=== PATIENT | female | born 1945 | race Caucasian/White ===

== ENCOUNTER 2021-08-02 12:57 | Inpatient (IN) ==
[2021-08-03] MEDS ORDERED: Ipratropium/Albuterol Neb 3 ML IH PRN (16:25)
[2021-08-03] MEDS: Budesonide/Formoterol 160/4.5 1 PUFF INH IH SCH (20:45)
[2021-08-03] MEDS ORDERED: Acetaminophen 325 MG TABLET PO PRN (21:25)
[2021-08-03] MEDS: Acetaminophen 325 MG TABLET PO PRN (22:08)
[2021-08-03] MEDS: Polymyxn-B/Trimeth Opth Drops 10 ML BOTTLE BOTH EYES SCH (22:10)
[2021-08-03] MEDS: Gabapentin 100 MG CAPSULE PO SCH (22:10)
[2021-08-04] MEDS: *HR* Enoxaparin 40 MG/0.4 ML SYRINGE SQ SCH (06:31)
[2021-08-04 06:49] LABS: Basophils % 0.2 %; Eosinophils % 0.1 %; Hematocrit 33.2 % (35.3-44.9); Hemoglobin 10.3 g/dL (11.5-15.4); Immature Granulocytes % 4.3 % (0-4); Lymphocytes # 1.3 K/mcL (0.6-4.6); Lymphocytes % 15.3 %; Mean Corpuscular Volume 103.1 fL (83.0-100.0); Mean Platelet Volume 10.9 fL (9.4-12.4); Monocytes # 0.6 K/mcL (0.0-1.3); Monocytes % 6.5 %; Neutrophils # 6.2 K/mcL (1.6-8.9); Nucleated Red Blood Cells 0.2 /100 WBC (0); Platelet Count 329 K/mcL (140-400); Red Blood Count 3.22 M/mcL (3.82-4.97); Red Cell Distribution Width 14.5 % (11.5-14.5); Segmented Neutrophils % 73.6 %; White Blood Count 8.5 K/mcL (4.3-11.1)
[2021-08-04 08:26] LABS: BUN/Creatinine Ratio 32 (6-26); Blood Urea Nitrogen 19 mg/dL (8-23); Calcium 8.2 mg/dL (8.6-10.3); Carbon Dioxide 45 mEq/L (23-29); Chloride 88 mEq/L (98-107); Glucose 82 mg/dL (70-105); Osmolality,Calculated 289 (280-300); Potassium 3.9 mEq/L (3.5-5.1); Sodium 139 mEq/L (136-145); eGFR For African Americans > 60 (> 60); eGFR For Non-African Americans > 60 (> 60)
[2021-08-04] MEDS: Furosemide 40 MG TABLET PO SCH (08:34)
[2021-08-04] MEDS: *HR* SitaGLIPtin 100 MG TABLET PO SCH (08:34)
[2021-08-04] MEDS: Gabapentin 100 MG CAPSULE PO SCH ×2 (08:34→19:44)
[2021-08-04] MEDS: Aspirin Enteric Coated 81 MG Tablet PO SCH (08:34)
[2021-08-04] MEDS: dexAMETHasone 4 MG TABLET PO SCH (08:35)
[2021-08-04] MEDS: Tiotropium 10 INH DOSE IH SCH (09:28)
[2021-08-04] MEDS: Budesonide/Formoterol 160/4.5 1 PUFF INH IH SCH ×2 (09:28→20:44)
[2021-08-04] MEDS: ZINC ACETATE 50 MG PO SCH (14:33)
[2021-08-04] MEDS: polyethylene glycoL 3350 17 GM POWD.PACK PO SCH (14:45)
[2021-08-04] MEDS: Sennosides/Docusate Sodium TABLET PO SCH ×2 (14:45→19:44)
[2021-08-04] MEDS: Polymyxn-B/Trimeth Opth Drops 10 ML BOTTLE BOTH EYES SCH ×3 (14:46→19:44)
[2021-08-04] MEDS: acetaZOLAMIDE 250 MG TABLET PO SCH ×2 (17:11→19:44)
[2021-08-04] MEDS: Acetaminophen 325 MG TABLET PO PRN (19:44)
[2021-08-05] MEDS: *HR* Enoxaparin 40 MG/0.4 ML SYRINGE SQ SCH (04:04)
[2021-08-05] MEDS: polyethylene glycoL 3350 17 GM POWD.PACK PO SCH ×2 (09:07→19:04)
[2021-08-05] MEDS: *HR* SitaGLIPtin 100 MG TABLET PO SCH (09:08)
[2021-08-05] MEDS: Furosemide 40 MG TABLET PO SCH (09:08)
[2021-08-05] MEDS: dexAMETHasone 4 MG TABLET PO SCH (09:08)
[2021-08-05] MEDS: acetaZOLAMIDE 250 MG TABLET PO SCH ×2 (09:09→19:50)
[2021-08-05] MEDS: Aspirin Enteric Coated 81 MG Tablet PO SCH (09:09)
[2021-08-05] MEDS: ZINC ACETATE 50 MG PO SCH (09:09)
[2021-08-05] MEDS: Polymyxn-B/Trimeth Opth Drops 10 ML BOTTLE BOTH EYES SCH ×3 (09:09→19:51)
[2021-08-05] MEDS: Gabapentin 100 MG CAPSULE PO SCH ×2 (09:09→19:50)
[2021-08-05] MEDS: Sennosides/Docusate Sodium TABLET PO SCH ×2 (09:09→19:50)
[2021-08-05] MEDS: Tiotropium 10 INH DOSE IH SCH (10:36)
[2021-08-05] MEDS: Budesonide/Formoterol 160/4.5 1 PUFF INH IH SCH ×2 (10:37→20:36)
[2021-08-05] MEDS: Acetaminophen 325 MG TABLET PO PRN (19:50)
[2021-08-06] MEDS: *HR* Enoxaparin 40 MG/0.4 ML SYRINGE SQ SCH (06:31)
[2021-08-06] MEDS: *HR* SitaGLIPtin 100 MG TABLET PO SCH (08:36)
[2021-08-06] MEDS: Furosemide 40 MG TABLET PO SCH (08:36)
[2021-08-06] MEDS: Aspirin Enteric Coated 81 MG Tablet PO SCH (08:37)
[2021-08-06] MEDS: Gabapentin 100 MG CAPSULE PO SCH ×2 (08:37→20:36)
[2021-08-06] MEDS: Sennosides/Docusate Sodium TABLET PO SCH ×2 (08:37→20:36)
[2021-08-06] MEDS: polyethylene glycoL 3350 17 GM POWD.PACK PO SCH (08:37)
[2021-08-06] MEDS: dexAMETHasone 4 MG TABLET PO SCH (08:37)
[2021-08-06] MEDS: acetaZOLAMIDE 250 MG TABLET PO SCH ×2 (08:37→20:36)
[2021-08-06] MEDS: ZINC ACETATE 50 MG PO SCH (08:38)
[2021-08-06] MEDS: Polymyxn-B/Trimeth Opth Drops 10 ML BOTTLE BOTH EYES SCH ×3 (08:38→20:37)
[2021-08-06] MEDS: Tiotropium 10 INH DOSE IH SCH (08:56)
[2021-08-06] MEDS: Budesonide/Formoterol 160/4.5 1 PUFF INH IH SCH ×2 (08:56→20:44)
[2021-08-06] MEDS: Acetaminophen 325 MG TABLET PO PRN (11:38)
[2021-08-07] MEDS: *HR* Enoxaparin 40 MG/0.4 ML SYRINGE SQ SCH (06:29)
[2021-08-07] MEDS: Acetaminophen 325 MG TABLET PO PRN ×2 (06:29→21:30)
[2021-08-07] MEDS: Aspirin Enteric Coated 81 MG Tablet PO SCH (08:22)
[2021-08-07] MEDS: Sennosides/Docusate Sodium TABLET PO SCH ×2 (08:22→21:29)
[2021-08-07] MEDS: *HR* SitaGLIPtin 100 MG TABLET PO SCH (08:23)
[2021-08-07] MEDS: dexAMETHasone 4 MG TABLET PO SCH (08:23)
[2021-08-07] MEDS: Gabapentin 100 MG CAPSULE PO SCH ×2 (08:24→21:30)
[2021-08-07] MEDS: Furosemide 40 MG TABLET PO SCH (08:24)
[2021-08-07] MEDS: polyethylene glycoL 3350 17 GM POWD.PACK PO SCH (08:24)
[2021-08-07] MEDS: ZINC ACETATE 50 MG PO SCH (08:25)
[2021-08-07] MEDS: Polymyxn-B/Trimeth Opth Drops 10 ML BOTTLE BOTH EYES SCH ×3 (08:25→21:30)
[2021-08-07] MEDS: Tiotropium 10 INH DOSE IH SCH (10:36)
[2021-08-07] MEDS: Budesonide/Formoterol 160/4.5 1 PUFF INH IH SCH ×2 (10:38→20:55)
[2021-08-08] MEDS: *HR* Enoxaparin 40 MG/0.4 ML SYRINGE SQ SCH (06:03)
[2021-08-08] MEDS: Acetaminophen 325 MG TABLET PO PRN (06:04)
[2021-08-08 07:34] LABS: Basophils % 0.2 %; Eosinophils % 0.2 %; Hematocrit 35.4 % (35.3-44.9); Hemoglobin 10.9 g/dL (11.5-15.4); Immature Granulocytes % 2.2 % (0-4); Lymphocytes # 1.5 K/mcL (0.6-4.6); Mean Corpuscular HGB Conc 30.8 g/dL (31.6-35.5); Mean Corpuscular Hemoglobin 31.6 pg (28.0-33.3); Mean Corpuscular Volume 102.6 fL (83.0-100.0); Mean Platelet Volume 10.8 fL (9.4-12.4); Monocytes % 8.2 %; Platelet Count 299 K/mcL (140-400); Red Blood Count 3.45 M/mcL (3.82-4.97); Red Cell Distribution Width 14.7 % (11.5-14.5); Segmented Neutrophils % 77.2 %; White Blood Count 12.5 K/mcL (4.3-11.1)
[2021-08-08 07:52] LABS: BUN/Creatinine Ratio 25 (6-26); Blood Urea Nitrogen 21 mg/dL (8-23); Calcium 8.1 mg/dL (8.6-10.3); Carbon Dioxide 34 mEq/L (23-29); Chloride 98 mEq/L (98-107); Glucose 122 mg/dL (70-105); Neutrophils # 9.7 K/mcL (1.6-8.9); Osmolality,Calculated 288 (280-300); Potassium 3.7 mEq/L (3.5-5.1); Sodium 137 mEq/L (136-145); eGFR For African Americans > 60 (> 60); eGFR For Non-African Americans > 60 (> 60)
[2021-08-08] MEDS: Furosemide 40 MG TABLET PO SCH (08:34)
[2021-08-08] MEDS: dexAMETHasone 4 MG TABLET PO SCH (08:34)
[2021-08-08] MEDS: Sennosides/Docusate Sodium TABLET PO SCH ×2 (08:36→20:22)
[2021-08-08] MEDS: polyethylene glycoL 3350 17 GM POWD.PACK PO SCH (08:36)
[2021-08-08] MEDS: Aspirin Enteric Coated 81 MG Tablet PO SCH (08:36)
[2021-08-08] MEDS: *HR* SitaGLIPtin 100 MG TABLET PO SCH (08:36)
[2021-08-08] MEDS: Gabapentin 100 MG CAPSULE PO SCH ×2 (08:36→20:21)
[2021-08-08] MEDS: Polymyxn-B/Trimeth Opth Drops 10 ML BOTTLE BOTH EYES SCH ×3 (08:38→20:22)
[2021-08-08] MEDS: ZINC ACETATE 50 MG PO SCH (08:38)
[2021-08-08] MEDS: Tiotropium 10 INH DOSE IH SCH (11:00)
[2021-08-08] MEDS: Budesonide/Formoterol 160/4.5 1 PUFF INH IH SCH ×2 (11:02→21:04)
[2021-08-09] MEDS: *HR* Enoxaparin 40 MG/0.4 ML SYRINGE SQ SCH (05:31)
[2021-08-09] MEDS: Polymyxn-B/Trimeth Opth Drops 10 ML BOTTLE BOTH EYES SCH ×3 (07:38→19:49)
[2021-08-09] MEDS: polyethylene glycoL 3350 17 GM POWD.PACK PO SCH (07:39)
[2021-08-09] MEDS: dexAMETHasone 4 MG TABLET PO SCH (07:40)
[2021-08-09] MEDS: Gabapentin 100 MG CAPSULE PO SCH ×2 (07:40→19:49)
[2021-08-09] MEDS: Sennosides/Docusate Sodium TABLET PO SCH ×2 (07:41→19:49)
[2021-08-09] MEDS: ZINC ACETATE 50 MG PO SCH (07:41)
[2021-08-09] MEDS: Aspirin Enteric Coated 81 MG Tablet PO SCH (07:41)
[2021-08-09] MEDS: Furosemide 40 MG TABLET PO SCH (07:41)
[2021-08-09] MEDS: *HR* SitaGLIPtin 100 MG TABLET PO SCH (07:41)
[2021-08-09] MEDS: Tiotropium 10 INH DOSE IH SCH (09:50)
[2021-08-09] MEDS: Budesonide/Formoterol 160/4.5 1 PUFF INH IH SCH ×2 (09:51→20:13)
[2021-08-09] MEDS ORDERED: Bisacodyl 10 MG RECTAL SUPPOSITORY RC PRN (10:12)
[2021-08-09 20:15] VITALS: RESP 16
[2021-08-10] MEDS: *HR* Enoxaparin 40 MG/0.4 ML SYRINGE SQ SCH (06:04)
[2021-08-10] MEDS: Aspirin Enteric Coated 81 MG Tablet PO SCH (08:21)
[2021-08-10] MEDS: *HR* SitaGLIPtin 100 MG TABLET PO SCH (08:21)
[2021-08-10] MEDS: Sennosides/Docusate Sodium TABLET PO SCH ×2 (08:22→20:28)
[2021-08-10] MEDS: Gabapentin 100 MG CAPSULE PO SCH ×2 (08:22→20:28)
[2021-08-10] MEDS: dexAMETHasone 4 MG TABLET PO SCH (08:22)
[2021-08-10] MEDS: Furosemide 40 MG TABLET PO SCH (08:22)
[2021-08-10] MEDS: ZINC ACETATE 50 MG PO SCH (08:22)
[2021-08-10] MEDS: polyethylene glycoL 3350 17 GM POWD.PACK PO SCH (08:22)
[2021-08-10] MEDS: Polymyxn-B/Trimeth Opth Drops 10 ML BOTTLE BOTH EYES SCH ×3 (08:29→20:30)
[2021-08-10] MEDS: Tiotropium 10 INH DOSE IH SCH (10:39)
[2021-08-10] MEDS: Budesonide/Formoterol 160/4.5 1 PUFF INH IH SCH ×2 (10:40→20:42)
[2021-08-10] MEDS: Acetaminophen 325 MG TABLET PO PRN (20:28)
[2021-08-11] MEDS: *HR* Enoxaparin 40 MG/0.4 ML SYRINGE SQ SCH (05:09)
[2021-08-11] MEDS: Acetaminophen 325 MG TABLET PO PRN (08:11)
[2021-08-11] MEDS ORDERED: dexAMETHasone 4 MG TABLET PO SCH (09:00)
[2021-08-11] MEDS: ZINC ACETATE 50 MG PO SCH (09:14)
[2021-08-11] MEDS: Gabapentin 100 MG CAPSULE PO SCH (09:14)
[2021-08-11] MEDS: *HR* SitaGLIPtin 100 MG TABLET PO SCH (09:14)
[2021-08-11] MEDS: Polymyxn-B/Trimeth Opth Drops 10 ML BOTTLE BOTH EYES SCH (09:14)
[2021-08-11] MEDS: Furosemide 40 MG TABLET PO SCH (09:14)
[2021-08-11] MEDS: Sennosides/Docusate Sodium TABLET PO SCH (09:14)
[2021-08-11] MEDS: polyethylene glycoL 3350 17 GM POWD.PACK PO SCH (09:14)
[2021-08-11] MEDS: Aspirin Enteric Coated 81 MG Tablet PO SCH (09:14)
[2021-08-11] MEDS: Budesonide/Formoterol 160/4.5 1 PUFF INH IH SCH (09:35)
[2021-08-11] MEDS: Tiotropium 10 INH DOSE IH SCH (09:35)
[2021-08-11 09:40] VITALS: O2SAT 99
[2021-08-11 11:40] VITALS: BP 128/69; PULSE 77; TEMP 97.8
[2021-08-18] MEDS ORDERED: dexAMETHasone 4 MG TABLET PO SCH (09:00)
== END 2021-08-11 12:31 | disposition home health service (06) | DRG 177 ==
LOC: INPGRE 08-03 18:50
PROVIDERS: ADMIT Family Medicine; ATTEND Family Medicine